=== PATIENT | female | born 1940 | race Caucasian/White ===

== ENCOUNTER 2018-11-28 17:51 | Inpatient (IN) | payer BC ==
[2018-11-28] MEDS: PANTOPRAZOLE 40 MG INJ IV (18:56)
[2018-11-28 19:08] LABS: ADD MAN DIFF? NO
[2018-11-28 19:13] LABS: BASOPHILS % 0.4 % (0.0-2.0); EOSINOPHILS % 0.1 % (0.0-7.0); HEMATOCRIT 28.7 % (37.0-47.0); HEMOGLOBIN 8.7 g/dl (12.0-16.0); LYMPHOCYTES # 0.9 10^3/ul (0.8-2.9); LYMPHOCYTES % 8.9 % (15.0-51.0); MEAN CORPUSCULAR HEMOGLOBIN 24.9 pg (29.0-33.0); MEAN CORPUSCULAR HGB CONC 30.3 g/dl (32.0-37.0); MEAN CORPUSCULAR VOLUME 82.2 fl (82.0-101.0); MEAN PLATELET VOLUME 11.7 fl (7.4-10.4); MONOCYTE # 0.4 10^3/ul (0.3-0.9); MONOCYTES % 3.4 % (0.0-11.0); NEUTROPHIL # 8.8 10^3/ul (1.6-7.5); NEUTROPHILS % 86.8 % (39.0-77.0); PLATELET COUNT 232 10^3/UL (140-415); RED BLOOD COUNT 3.49 10^6/ul (4.20-5.40); RED CELL DISTRIBUTION WIDTH 16.2 % (11.5-14.5)
[2018-11-28 19:13] LABS: WHITE BLOOD COUNT 10.2 10^3/ul (4.8-10.8)
[2018-11-28 19:31] LABS: ALANINE AMINOTRANSFERASE 22 IU/L (13-69); ALBUMIN 4.2 g/dl (3.3-4.9); ALKALINE PHOSPHATASE 39 IU/L (42-121); ANION GAP 10 (5-13); ASPARTATE AMINO TRANSFERASE 19 IU/L (15-46); BILIRUBIN,INDIRECT 0.2 mg/dl (0-1.1); BILIRUBIN,TOTAL 0.2 mg/dl (0.2-1.3); BLOOD UREA NITROGEN 58 mg/dl (7-20); CALCIUM 9.4 mg/dl (8.4-10.2); CARBON DIOXIDE 24 mmol/L (21-31); CHLORIDE 108 mmol/L (97-110); CREATININE 0.79 mg/dl (0.44-1.00); GLUCOSE 170 mg/dl (70-220); SODIUM 142 mmol/L (135-144); TOTAL PROTEIN 7.2 g/dl (6.1-8.1)
[2018-11-28 19:34] LABS: INR 1.24; PROTIME 15.7 Sec (11.9-14.9); PT RATIO 1.2
[2018-11-28 19:42] LABS: TROPONIN-I < 0.012 ng/ml (0.000-0.120)
[2018-11-28] MEDS ORDERED: NACL 0.9% 3 ML SYG IV (21:30)
[2018-11-28] MEDS ORDERED: ALBUTEROL/IPRATROPIUM (NEB) 3 ML AMP HHN (21:30)
[2018-11-29] MEDS: ONDANSETRON 4 MG INJ IV (01:28)
[2018-11-29] MEDS: DEXTROSE 5%-0.45% NACL 1,000 ML IV ×3 (02:04→13:28)
[2018-11-29 06:10] LABS: ADD MAN DIFF? NO
[2018-11-29 06:33] LABS: BASOPHILS % 0.4 % (0.0-2.0); EOSINOPHILS # 0.1 10^3/ul (0.0-0.5); EOSINOPHILS % 0.7 % (0.0-7.0); HEMATOCRIT 25.5 % (37.0-47.0); HEMOGLOBIN 7.8 g/dl (12.0-16.0); LYMPHOCYTES # 1.9 10^3/ul (0.8-2.9); LYMPHOCYTES % 27.5 % (15.0-51.0); MEAN CORPUSCULAR HEMOGLOBIN 25.2 pg (29.0-33.0); MEAN CORPUSCULAR HGB CONC 30.6 g/dl (32.0-37.0); MEAN CORPUSCULAR VOLUME 82.3 fl (82.0-101.0); MEAN PLATELET VOLUME 12.2 fl (7.4-10.4); MONOCYTE # 0.6 10^3/ul (0.3-0.9); NEUTROPHIL # 4.4 10^3/ul (1.6-7.5); NEUTROPHILS % 62.1 % (39.0-77.0); PLATELET COUNT 213 10^3/UL (140-415); RED CELL DISTRIBUTION WIDTH 16.5 % (11.5-14.5)
[2018-11-29 07:03] LABS: ALANINE AMINOTRANSFERASE 26 IU/L (13-69); ALBUMIN 3.7 g/dl (3.3-4.9); ALBUMIN/GLOBULIN RATIO 1.37; ALKALINE PHOSPHATASE 34 IU/L (42-121); ANION GAP 6 (5-13); ASPARTATE AMINO TRANSFERASE 17 IU/L (15-46); BILIRUBIN,INDIRECT 0.2 mg/dl (0-1.1); BILIRUBIN,TOTAL 0.2 mg/dl (0.2-1.3); BLOOD UREA NITROGEN 50 mg/dl (7-20); CALCIUM 9.1 mg/dl (8.4-10.2); CARBON DIOXIDE 29 mmol/L (21-31); CHLORIDE 108 mmol/L (97-110); CREATININE 0.65 mg/dl (0.44-1.00); GLUCOSE 133 mg/dl (70-220); MAGNESIUM 2.3 mg/dl (1.7-2.5); PHOSPHORUS 3.6 mg/dl (2.5-4.9); POTASSIUM 4.1 mmol/L (3.5-5.1); SODIUM 143 mmol/L (135-144); TOTAL PROTEIN 6.4 g/dl (6.1-8.1)
[2018-11-29] MEDS: PANTOPRAZOLE 40 MG INJ IV ×2 (10:10→18:00)
[2018-11-29] MEDS ORDERED: traMADol 50 MG TAB PO (13:00)
[2018-11-29] MEDS ORDERED: INSULIN ASPART [NOVOLOG] 3 ML PEN SC (13:00)
[2018-11-29] MEDS ORDERED: hydrALAzine 20 MG INJ IV (13:00)
[2018-11-29] MEDS: INSULIN ASPART [NOVOLOG] 3 ML PEN SC ×2 (17:00→21:00)
[2018-11-29] MEDS ORDERED: LIDOCAINE 2% (SDV) 5 ML INJ (18:09)
[2018-11-29] MEDS ORDERED: PROPOFOL 40 ML (18:09)
[2018-11-29] MEDS ORDERED: GLUCOSE GEL 15 GRAM TUBE PO ×2 (20:30)
[2018-11-29] MEDS ORDERED: DEXTROSE 50% 50 ML SYRINGE IV ×2 (20:30)
[2018-11-29] MEDS ORDERED: GLUCAGON 1 MG INJ IM (20:30)
[2018-11-29] MEDS ORDERED: GLUCOSE GEL 15 GRAM TUBE BUCCAL (20:30)
[2018-11-29] MEDS: ATORVASTATIN 10 MG TAB PO (21:26)
[2018-11-29] MEDS: LORAZEPAM 1 MG TAB PO (21:26)
[2018-11-30] MEDS: ACCU-CHEK XX (02:00)
[2018-11-30] MEDS ORDERED: ACCU-CHEK XX (02:00)
[2018-11-30] MEDS: PANTOPRAZOLE 40 MG INJ IV (06:15)
[2018-11-30] MEDS: LEVOTHYROXINE 25 MCG TAB PO (06:16)
[2018-11-30 07:30] LABS: ADD MAN DIFF? NO
[2018-11-30 07:39] LABS: WHITE BLOOD COUNT 5.8 10^3/ul (4.8-10.8)
[2018-11-30 07:39] LABS: BASOPHILS % 0.3 % (0.0-2.0); EOSINOPHILS # 0.2 10^3/ul (0.0-0.5); EOSINOPHILS % 3.1 % (0.0-7.0); HEMATOCRIT 25.2 % (37.0-47.0); HEMOGLOBIN 7.6 g/dl (12.0-16.0); LYMPHOCYTES # 1.3 10^3/ul (0.8-2.9); LYMPHOCYTES % 22.5 % (15.0-51.0); MEAN CORPUSCULAR HEMOGLOBIN 25.1 pg (29.0-33.0); MEAN CORPUSCULAR HGB CONC 30.2 g/dl (32.0-37.0); MEAN CORPUSCULAR VOLUME 83.2 fl (82.0-101.0); MEAN PLATELET VOLUME 10.8 fl (7.4-10.4); MONOCYTE # 0.6 10^3/ul (0.3-0.9); MONOCYTES % 9.8 % (0.0-11.0); NEUTROPHIL # 3.7 10^3/ul (1.6-7.5); NEUTROPHILS % 63.8 % (39.0-77.0); PLATELET COUNT 171 10^3/UL (140-415); RED BLOOD COUNT 3.03 10^6/ul (4.20-5.40); RED CELL DISTRIBUTION WIDTH 16.5 % (11.5-14.5)
[2018-11-30 07:58] LABS: ANION GAP 7 (5-13); BLOOD UREA NITROGEN 25 mg/dl (7-20); CALCIUM 8.6 mg/dl (8.4-10.2); CARBON DIOXIDE 28 mmol/L (21-31); CHLORIDE 106 mmol/L (97-110); CREATININE 0.58 mg/dl (0.44-1.00); GLUCOSE 125 mg/dl (70-220); POTASSIUM 4.1 mmol/L (3.5-5.1); SODIUM 141 mmol/L (135-144)
[2018-11-30] MEDS: AMLODIPINE 5 MG TAB PO (08:54)
[2018-11-30] MEDS: FOLIC ACID 1 MG TAB PO (08:54)
[2018-11-30] MEDS: DULOXETINE 30 MG CAP DR PO (08:54)
[2018-11-30] MEDS: LOSARTAN 50 MG TAB PO (08:54)
[2018-11-30] MEDS: OXYBUTYNIN 5 MG TAB PO ×2 (08:55→12:18)
[2018-11-30] MEDS: INSULIN ASPART [NOVOLOG] 3 ML PEN SC ×2 (08:56→12:21)
[2018-11-30 10:04] LABS: OCCULT BLOOD STOOL POSITIVE (NEGATIVE)
[2018-11-30] MEDS: SOD FERRIC GLUC COMPLX 125 MG in SOD CHLORIDE 0.9% 100 ML IVPB (12:18)
== END 2018-11-30 15:26 | disposition home or self-care (01) | DRG 358 ==
LOC: PP2 21:05 → E/R 17:51
PROC: 0W3P4ZZ Control Bleeding in Gastrointestinal Tract, Percutaneous Endoscopic Approach (ICD-10-PCS; principal; 2018-11-29 17:22)
DX: K25.4 Chronic or unspecified gastric ulcer with hemorrhage (principal); E66.01 Morbid (severe) obesity due to excess calories; Z68.31 Body mass index [BMI] 31.0-31.9, adult; E11.9 Type 2 diabetes mellitus without complications; I10 Essential (primary) hypertension; D50.0 Iron deficiency anemia secondary to blood loss (chronic); E03.9 Hypothyroidism, unspecified; E78.5 Hyperlipidemia, unspecified; E55.9 Vitamin D deficiency, unspecified; M81.0 Age-related osteoporosis without current pathological fracture; F32.9 Major depressive disorder, single episode, unspecified; R29.6 Repeated falls; R41.3 Other amnesia; Z79.1 Long term (current) use of non-steroidal anti-inflammatories (NSAID); Z79.82 Long term (current) use of aspirin; Z96.653 Presence of artificial knee joint, bilateral
CPT/HCPCS: 36415; 72040; 80048; 80053; 82270; 82962; 83735; 84100; 84443; 84484; 85025; 85610; 85730; 86850; 86900; 86901; 88305; 88312; 93005; 96374; 97162; 99285-25

== ENCOUNTER 2019-02-11 10:53 | Emergency (ER) | payer BC ==
[2019-02-11] MEDS: PANTOPRAZOLE 40 MG INJ IV (12:09)
[2019-02-11 12:11] LABS: ADD MAN DIFF? NO
[2019-02-11 12:16] LABS: BASOPHILS % 0.4 % (0.0-2.0); EOSINOPHILS % 0.2 % (0.0-7.0); HEMATOCRIT 30.7 % (37.0-47.0); HEMOGLOBIN 9.5 g/dl (12.0-16.0); LYMPHOCYTES # 1.1 10^3/ul (0.8-2.9); LYMPHOCYTES % 11.2 % (15.0-51.0); MEAN CORPUSCULAR HEMOGLOBIN 25.7 pg (29.0-33.0); MEAN CORPUSCULAR HGB CONC 30.9 g/dl (32.0-37.0); MEAN PLATELET VOLUME 11.6 fl (7.4-10.4); MONOCYTE # 0.5 10^3/ul (0.3-0.9); MONOCYTES % 4.7 % (0.0-11.0); NEUTROPHIL # 8.4 10^3/ul (1.6-7.5); NEUTROPHILS % 82.9 % (39.0-77.0); PLATELET COUNT 256 10^3/UL (140-415); RED CELL DISTRIBUTION WIDTH 17.4 % (11.5-14.5)
[2019-02-11 12:16] LABS: WHITE BLOOD COUNT 10.2 10^3/ul (4.8-10.8)
[2019-02-11 12:31] LABS: ALANINE AMINOTRANSFERASE 17 IU/L (13-69); ALBUMIN 4.3 g/dl (3.3-4.9); ALBUMIN/GLOBULIN RATIO 1.43; ALKALINE PHOSPHATASE 33 IU/L (42-121); ANION GAP 9 (5-13); ASPARTATE AMINO TRANSFERASE 22 IU/L (15-46); BILIRUBIN,INDIRECT 0.4 mg/dl (0-1.1); BILIRUBIN,TOTAL 0.4 mg/dl (0.2-1.3); BLOOD UREA NITROGEN 53 mg/dl (7-20); CALCIUM 9.2 mg/dl (8.4-10.2); CARBON DIOXIDE 28 mmol/L (21-31); CHLORIDE 105 mmol/L (97-110); CREATININE 0.67 mg/dl (0.44-1.00); GLUCOSE 161 mg/dl (70-220); POTASSIUM 4.6 mmol/L (3.5-5.1); SODIUM 142 mmol/L (135-144); TOTAL PROTEIN 7.3 g/dl (6.1-8.1)
[2019-02-11 12:40] LABS: INR 1.05; PARTIAL THROMBOPLASTIN TIME 23.4 Sec (23.0-35.0); PROTIME 13.8 Sec (11.9-14.9); PT RATIO 1.1
[2019-02-11 12:43] LABS: TROPONIN-I < 0.012 ng/ml (0.000-0.120)
[2019-02-11] MEDS ORDERED: FAMOTIDINE 20 MG INJ IV (15:00)
[2019-02-11] MEDS: FAMOTIDINE 20 MG TAB PO (15:30)
== END 2019-02-11 15:45 | disposition home or self-care (01) ==
LOC: E/R 10:53
DX: K27.4 Chronic or unspecified peptic ulcer, site unspecified, with hemorrhage (principal); R79.89 Other specified abnormal findings of blood chemistry; E11.9 Type 2 diabetes mellitus without complications; Z79.82 Long term (current) use of aspirin; Z79.84 Long term (current) use of oral hypoglycemic drugs; Z96.653 Presence of artificial knee joint, bilateral
CPT/HCPCS: 36415; 71045; 80053; 84484; 85025; 85610; 85730; 86850; 86900; 86901; 93005; 96374; 96375; 99285-25